=== PATIENT | male | born 1955 | race Caucasian/White ===

== ENCOUNTER 2019-11-14 12:09 | Outpatient (CLI) | payer MEDICARE, OTHER ==
--- NOTE | 2019-11-14 13:19 | RAD ---
RIGHT SHOULDER 3 VIEWS: Date; 11/14/19 HISTORY: Bilateral shoulder pain, neck and head pain. FINDINGS: Very mild degenerative and osteoarthrosis changes. No fracture or dislocation. IMPRESSION: No significant acute process. POS: [facility]
--- NOTE | 2019-11-14 13:22 | RAD ---
LEFT SHOULDER THREE VIEWS: HISTORY: Left shoulder pain. FINDINGS/IMPRESSION: Mild degenerative and osteoarthrosis changes without fracture, dislocation or other acute process. POS: [facility]
== END 2019-11-14 12:10 | disposition home or self-care (01) ==
LOC: SCSRAD 12:09
PROVIDERS: ATTEND Neurological Surgery
DX: M25.519 Pain in unspecified shoulder (principal); M19.012 Primary osteoarthritis, left shoulder; M19.011 Primary osteoarthritis, right shoulder

== ENCOUNTER 2020-03-25 12:29 | Outpatient (CLI) | payer MEDICARE, OTHER ==
--- NOTE | 2020-03-25 13:22 | CT ---
CT cervical spine noncontrast HISTORY: Neck pain with left arm radiculopathy. FINDINGS: Vertebral body heights and alignment are maintained. Cervicothoracic junction is intact. No acute fracture or dislocation. C2-3, C3-4, C4-5: Mild osteophytosis. Central canal and neural foramina are patent. C5-6: Mild posterior osteophyte/disc complex. Mild osteophytosis. No compression of the spinal cord. Thecal sac and neural foramina are patent. C6-7: Mild osteophytosis. Central canal and neural foramina are patent. C7-T1: Central canal and neural foramina are patent. IMPRESSION : Very mild degenerative changes throughout the cervical spine. No acute osseous abnormalities are demo nstrated.
== END 2020-03-25 12:30 | disposition home or self-care (01) ==
LOC: TBSIIMAG 12:29
PROVIDERS: ATTEND Neurological Surgery
DX: M54.2 Cervicalgia (principal); M47.812 Spondylosis without myelopathy or radiculopathy, cervical region
CPT/HCPCS: 72125